=== PATIENT | female | born 1940 | race Caucasian/White ===

== ENCOUNTER 2018-07-02 02:25 | Day surgery (SDC) | payer MEDICARE ==
[2018-07-01 13:30] LABS: BASOPHILS ABSOLUTE AUTO 0.04 K/mm3 (0.00-0.23); BASOPHILS PERCENT AUTO 0 % (0-2); EOSINOPHILS ABSOLUTE AUTO 0.15 K/mm3 (0.00-0.68); EOSINOPHILS PERCENT AUTO 2 % (0-6); Hematocrit 36.2 % (33.0-51.0); Hemoglobin 11.5 g/dL (11.5-16.0); IMMATURE GRAN ABSOLUTE AUTO 0.08 K/mm3 (0.00-0.10); IMMATURE GRAN PERCENT AUTO 1 % (0-1); LYMPHOCYTES ABSOLUTE AUTO 1.45 K/mm3 (0.84-5.20); LYMPHOCYTES PERCENT AUTO 16 % (21-46); MONOCYTES ABSOLUTE AUTO 0.66 K/mm3 (0.16-1.47); MONOCYTES PERCENT AUTO 7 % (4-13); Mean Corpuscular HGB Conc 31.8 g/dL (31.5-36.5); Mean Corpuscular Volume 85 fL (80-100); NEUTROPHILS ABSOLUTE AUTO 6.72 K/mm3 (1.96-9.15); NEUTROPHILS PERCENT AUTO 74 % (41-73); Platelet Count 253 K/mm3 (150-400); RDW Coefficient Variation 14.3 % (11.7-14.2); RDW Standard Deviation 43.9 fL (35.1-46.3); Red Blood Cell Count 4.26 M/mm3 (3.80-5.20)
[2018-07-01 13:33] LABS: International Normalized Ratio 0.97
[2018-07-01 15:46] LABS: Bun/Creatinine Ratio 18.3 (12.0-20.0); Calcium, Blood 9.1 mg/dL (8.5-10.1); Creatinine, Blood 1.09 mg/dL (0.40-1.00); Potassium, Blood 4.6 mmol/L (3.5-5.5)
[~2018-07-02] VITALS: Ht 157.5 cm; Wt 83.0 kg
[~2018-07-02 02:25] MED LIST: BRAIN MIGHT-DH1 EACH; CALCIUM 1,0001 EACH; Glucophage1000 MG; HYDACE5 PO; NAPR500 PO; Omeprazole20 M1; SERT100
[2018-07-02] MEDS ORDERED: ZESTORETIC 20-121 EA PO (08:20)
== END 2018-07-02 12:16 | disposition home or self-care (01) ==
LOC: MHTC 02:25
PROVIDERS: Internal Medicine Cardiovascular Disease
PROC: B211YZZ Fluoroscopy of Multiple Coronary Arteries using Other Contrast (ICD-10-PCS; principal; 2018-07-02)
DX: I35.0 Nonrheumatic aortic (valve) stenosis (principal); E11.9 Type 2 diabetes mellitus without complications; J45.909 Unspecified asthma, uncomplicated; I10 Essential (primary) hypertension
CPT/HCPCS: 36415; 80048; 85025; 85610; 93454; 99152; 99153; C1769; C1894; J1644; J2250; J3010; J7030; Q9967

== ENCOUNTER → 2018-07-08 | Outpatient (CLI) | payer MEDICARE ==
[~2018-07-08] MED LIST changes: +ZESTORETIC 20-121 EA PO
== END | disposition home or self-care (01) ==
LOC: LAB SHORT 14:54 → PLD 14:54
DX: D11.0 Benign neoplasm of parotid gland (principal)
CPT/HCPCS: 88173

== ENCOUNTER 2019-01-01 08:16 | Day surgery (SDC) | payer MEDICARE ==
[~2019-01-01] VITALS: Ht 160 cm; Wt 79.3 kg
[~2019-01-01 08:16] MED LIST changes: +ALBU2.5V5; +ALBU90OI61 INH; +Aspirin EC81 MG PO; +CLOP75 PO; +Fruity C250 MG PO; +HYDHCL25 PO; +Hair, Skin & N1 EACH PO; +Metformin HCl1000 MG PO; +Mupirocin22 GM; +Omeprazole20 M1 PO; +SERT100 PO; +Super B-50 Com1 EACH PO; +VITAMIN D31000 UNIT PO
--- NOTE | 2019-01-01 11:16 | NUR ---
01/01/19 1116 Kimmy Sykes AWARE OF PATIENTS LOW BP. NO ORDERS RECEIVED. PATIENTS IV FLUIDS OPENED UP. WILL CONTINUE TO MONITOR. RN WILL NOTIFY DR. TILLEY IF PATIENTS BP DOES NOT BEGIN TO INCREASE.
== END 2019-01-01 12:00 | disposition home or self-care (01) ==
LOC: ORSCSDS 08:16
PROVIDERS: Student in an Organized Health Care Education/Training Program
PROC: 0DB68ZX Excision of Stomach, Via Natural or Artificial Opening Endoscopic, Diagnostic (ICD-10-PCS; principal; 2019-01-01 09:45)
PROC: 0DBH8ZX Excision of Cecum, Via Natural or Artificial Opening Endoscopic, Diagnostic (ICD-10-PCS; principal; 2019-01-01 09:45)
PROC: 0DBE8ZX Excision of Large Intestine, Via Natural or Artificial Opening Endoscopic, Diagnostic (ICD-10-PCS; 2019-01-01 09:45)
PROC: 0DB98ZX Excision of Duodenum, Via Natural or Artificial Opening Endoscopic, Diagnostic (ICD-10-PCS; 2019-01-01 09:45)
PROC: 0D758ZZ Dilation of Esophagus, Via Natural or Artificial Opening Endoscopic (ICD-10-PCS; 2019-01-01 09:45)
PROC: 0DB58ZX Excision of Esophagus, Via Natural or Artificial Opening Endoscopic, Diagnostic (ICD-10-PCS; 2019-01-01 09:45)
DX: K21.9 Gastro-esophageal reflux disease without esophagitis (principal); R13.14 Dysphagia, pharyngoesophageal phase; D64.9 Anemia, unspecified; R19.7 Diarrhea, unspecified; K44.9 Diaphragmatic hernia without obstruction or gangrene; K29.70 Gastritis, unspecified, without bleeding; K22.2 Esophageal obstruction; K31.7 Polyp of stomach and duodenum; K57.30 Diverticulosis of large intestine without perforation or abscess without bleeding; Z86.010 Personal history of colon polyps; K64.4 Residual hemorrhoidal skin tags; I10 Essential (primary) hypertension; E11.9 Type 2 diabetes mellitus without complications; F32.9 Major depressive disorder, single episode, unspecified; Z79.899 Other long term (current) drug therapy; Z79.82 Long term (current) use of aspirin
CPT/HCPCS: 82947; 88305; 88342; C1726; J7120

== ENCOUNTER 2019-01-10 08:36 | Observation (INO) | payer MEDICARE ==
[~2019-01-10] VITALS: Ht 160 cm; Wt 81.2 kg
[2019-01-10] MEDS ORDERED: PANT40 PO (09:08)
[2019-01-10 09:56] LABS: BASOPHILS PERCENT AUTO 1 % (0-2); EOSINOPHILS ABSOLUTE AUTO 0.25 K/mm3 (0.00-0.68); EOSINOPHILS PERCENT AUTO 2 % (0-6); Hematocrit 34.2 % (33.0-51.0); Hemoglobin 10.8 g/dL (11.5-16.0); IMMATURE GRAN PERCENT AUTO 1 % (0-1); LYMPHOCYTES ABSOLUTE AUTO 1.47 K/mm3 (0.84-5.20); LYMPHOCYTES PERCENT AUTO 13 % (21-46); MONOCYTES ABSOLUTE AUTO 0.93 K/mm3 (0.16-1.47); MONOCYTES PERCENT AUTO 9 % (4-13); Mean Corpuscular HGB 28.3 pg (26.0-34.0); Mean Corpuscular HGB Conc 31.6 g/dL (31.5-36.5); Mean Corpuscular Volume 90 fL (80-100); Mean Platelet Volume 9.6 fL (9.1-12.4); NEUTROPHILS ABSOLUTE AUTO 8.12 K/mm3 (1.96-9.15); NEUTROPHILS PERCENT AUTO 74 % (41-73); Platelet Count 265 K/mm3 (150-400); RDW Coefficient Variation 13.7 % (11.7-14.2); Red Blood Cell Count 3.81 M/mm3 (3.80-5.20); White Blood Cell Count 10.97 K/mm3 (4.00-11.30)
[2019-01-10 10:04] LABS: Albumin, Blood 3.7 g/dL (3.4-5.0); Albumin/Globulin Ratio 0.9 (0.8-1.8); Bilirubin, Total 0.2 mg/dL (0.1-1.0); Bun/Creatinine Ratio 30.6 (12.0-20.0); Calcium, Blood 9.2 mg/dL (8.5-10.1); Creatinine, Blood 1.11 mg/dL (0.40-1.00); Globulin, Blood 4.3 g/dL (2.2-4.0); Potassium, Blood 4.9 mmol/L (3.5-5.5)
[2019-01-10 16:17] LABS: Hematocrit 33.7 % (33.0-51.0); Hemoglobin 10.9 g/dL (11.5-16.0)
[2019-01-10 22:25] LABS: Hematocrit 30.5 % (33.0-51.0); Hemoglobin 9.6 g/dL (11.5-16.0)
[2019-01-11 04:57] LABS: Hematocrit 30.8 % (33.0-51.0); Hemoglobin 9.5 g/dL (11.5-16.0)
--- NOTE | 2019-01-11 05:46 | NUR ---
SHIFT SUMMARY NO ACUTE CHANGES. PT HAD UNEVENTFUL NIGHT. PT DID NOT HAVE ANY BOWEL MOVEMENTS THIS EVENING. NO SIGNS OF BLEEDING. DENIES ANY NAUSEA OR ABDOMINAL PAIN. SLEPT WELL THROUGHOUT THE NIGHT. VSS. WILL CONTINUE TO MONITOR AND REPORT TO DAY RN.
[2019-01-11 10:18] LABS: Hematocrit 30.7 % (33.0-51.0); Hemoglobin 9.5 g/dL (11.5-16.0)
[2019-01-11 15:25] LABS: Hematocrit 30.4 % (33.0-51.0); Hemoglobin 9.5 g/dL (11.5-16.0)
--- NOTE | 2019-01-11 16:50 | NUR ---
SUMMARY PT IS A/O X4, PLEASANT/COOPERATIVE AFFECT. IND IN ROOM & UP AMBULATING IN HALLS. SHE STATE DR SPAULDING IN THIS AM TO SEE HER, DIET TO CONTINUE CL UNTIL SHE HAS BM. APPROX 1200 TODAY CALLED TO ROOM TO VIEW STOOL OUTPUT, APPEARED LOOSE RED/BLOODY, MEDIUM SIZED. PT/DAUGHTER STATE MULT BLOODY STOOLS PRIOR TO ADMIT. DR CASTELLANOS NOTIFIED. ORDER DR SPAULDING NOTIFIED, MESSAGE TO PAGER X2 HOWEVER HAS NOT BEEN BACK TO ROOM SO FAR THIS AFTERNOON. DR CASTELLANOS ORDER CARDIOLOGY CONSULT WITH DR WONG, IN TO SEE PT, ORDER ECHO, WILL REVIEW RESULTS & MAKE RECOMMENDATIONS. @ THIS TIME NO ORDERS FOR D/C HOME, PT AWARE. LAST H&H 30.4/9.6, VSS.
[2019-01-12 04:57] LABS: Hematocrit 32.1 % (33.0-51.0); Hemoglobin 9.7 g/dL (11.5-16.0)
--- NOTE | 2019-01-12 06:26 | NUR ---
SHIFT SUMMARY NO ACUTE CHANGES. STILL NO BM. NO SYMPTOMS OF BLEEDING. PT REQUESTING TO ADVANCE DIET. REMAINS CLEAR LIQUID AT THIS TIME. NO COMPLAINTS. PT HOPING TO BE DISCHARGED HOME. VSS. H & H STABLE. WILL CONTINUE TO MONITOR.
--- NOTE | 2019-01-12 09:20 | NUR ---
PERMISSION FOR CARE Patient gave student permission to provide care on 01/13/19 from 0630 to 1200.
--- NOTE | 2019-01-12 11:49 | NUR ---
ASSUMED CARE OF PT- *LATE ENTRY* BEDSIDE REPORT COMPLETE WITH NIGHT RN PRESLEY. PER REPORT PT ALERT AND ORIENTED AND INDEPENDENT IN THE ROOM. NO STOOLS LAST NIGHT PER REPORT BLOOD IN STOOL YESTERDAY, H&H STABLE AT THIS TIME. PT REQUESTED INCREASE IN DIET FROM CLEAR LIQUID, WILL SPEAK TO DR CASTELLANOS ON MORNING ROUNDS.
--- NOTE | 2019-01-12 14:27 | NUR ---
DISCHARGE NOTE- PT GIVEN VERBAL AND WRITTEN DISCHARGE INSTRUCTIONS AND ACKNOWLEDGED UNDERSTANDING OF THEM. PT DAUGHTER ARRIVED LATER AND FOLLOW UP APPOINTMENTS DISCUSSED WITH HER. PT DECLINED ESCORT AND W/C AND WALKED OUT UNDER HER OWN POWER WITH HER DAUGHTER. CONTACT INFORMATION PROVIDED IN THE EVENT THAT QUESTIONS SHOULD ARRISE.
== END 2019-01-12 12:45 | disposition home or self-care (01) ==
LOC: ER 08:36 → MEDS 08:37 → ERHOLD 08:37 → MEDS 16:41 → ENPENDDIS 01-12 11:00 → MEDS 01-12 12:45
PROVIDERS: Emergency Medicine; Family Medicine; ADMIT Internal Medicine
DX: K62.5 Hemorrhage of anus and rectum (principal); D62 Acute posthemorrhagic anemia; K57.90 Diverticulosis of intestine, part unspecified, without perforation or abscess without bleeding; R01.1 Cardiac murmur, unspecified; I12.9 Hypertensive chronic kidney disease with stage 1 through stage 4 chronic kidney disease, or unspecified chronic kidney disease; E11.22 Type 2 diabetes mellitus with diabetic chronic kidney disease; N18.3 Chronic kidney disease, stage 3 (moderate); F32.9 Major depressive disorder, single episode, unspecified; J45.909 Unspecified asthma, uncomplicated; K21.9 Gastro-esophageal reflux disease without esophagitis; E66.9 Obesity, unspecified; Z91.018 Allergy to other foods; Z91.048 Other nonmedicinal substance allergy status; Z79.899 Other long term (current) drug therapy; Z79.82 Long term (current) use of aspirin; Z79.84 Long term (current) use of oral hypoglycemic drugs; Z79.02 Long term (current) use of antithrombotics/antiplatelets; Z86.010 Personal history of colon polyps; Z95.2 Presence of prosthetic heart valve; Z87.442 Personal history of urinary calculi; Z90.49 Acquired absence of other specified parts of digestive tract; Z90.710 Acquired absence of both cervix and uterus; Z98.890 Other specified postprocedural states; Z86.39 Personal history of other endocrine, nutritional and metabolic disease; Z68.31 Body mass index [BMI] 31.0-31.9, adult
CPT/HCPCS: 36415; 80053; 82947; 85014; 85018; 85025; 86850; 86900; 86901; 93308; 93321; 96361; 96374; 96376; 99285; C9113; G0378; J7030

== ENCOUNTER 2020-04-07 08:46 | Day surgery (SDC) | payer MEDICARE ==
[~2020-04-07] VITALS: Ht 157.5 cm; Wt 81.9 kg
[~2020-04-07 08:46] MED LIST changes: +ALBU2.5V5 INH; +ALBU90OI INH; +ATORVASTATIN CA40 M1 PO; +Aspir 8181 MG PO; +CALCIUM 600 +1 EA11 PO; +DOXEPIN HCL3 MG PO; +GABA100 PO; +METFORMIN HCL500 M1 PO; +MULTIVITAMIN W1 EAC1 PO; +NEPHPLEX RX TA1 EACH PO; +PANT40 PO; +Vitamin D2000 UNIT PO; +ZESTORETIC 20-1 EACH PO
--- NOTE | 2020-04-07 09:29 | NUR ---
04/07/20 0929 Rose Perez 2 IV ATTEMPTS BY RN 1 IN RH AND 1 IN RW VALVE Q SUCCESSFL IV IN RAC BY BEN GONZALEZ TOW
--- NOTE | 2020-04-07 10:30 | NUR ---
04/07/20 Felix Carbajal PT RESTING ON BED. PT DENIES ANY LIGHTHEADEDNESS. PT AWAKE, ALERT. PT DENIES ANY PAIN. PT BP LOW. DR. STEWART AWARE. DR. STEWART GAVE PT MEDICATION TO INCREASE BP. PT MONITORED CLOSELY. PT TOLERATING APPLE JUICE. PT SMILING AND LAUGHING IN THE ROOM. WILL CONTINUE TO MONITOR.
== END 2020-04-07 10:43 | disposition home or self-care (01) ==
LOC: ORSCSDS 08:46
PROVIDERS: Student in an Organized Health Care Education/Training Program
PROC: 0DB58ZX Excision of Esophagus, Via Natural or Artificial Opening Endoscopic, Diagnostic (ICD-10-PCS; principal; 2020-04-07 10:15)
PROC: 0DB98ZX Excision of Duodenum, Via Natural or Artificial Opening Endoscopic, Diagnostic (ICD-10-PCS; principal; 2020-04-07 10:15)
PROC: 0DB68ZX Excision of Stomach, Via Natural or Artificial Opening Endoscopic, Diagnostic (ICD-10-PCS; principal; 2020-04-07 10:15)
PROC: 0D758ZZ Dilation of Esophagus, Via Natural or Artificial Opening Endoscopic (ICD-10-PCS; principal; 2020-04-07 10:15)
DX: K90.0 Celiac disease (principal); R13.10 Dysphagia, unspecified; K21.9 Gastro-esophageal reflux disease without esophagitis; K29.70 Gastritis, unspecified, without bleeding; K31.7 Polyp of stomach and duodenum; K22.2 Esophageal obstruction; K44.9 Diaphragmatic hernia without obstruction or gangrene; I10 Essential (primary) hypertension; E11.9 Type 2 diabetes mellitus without complications; E03.9 Hypothyroidism, unspecified; J45.909 Unspecified asthma, uncomplicated; Z79.84 Long term (current) use of oral hypoglycemic drugs
CPT/HCPCS: 82947; 88305; 88342; C1726; J2370; J2405; J2704; J7120

== ENCOUNTER 2020-10-14 21:39 | Emergency (ER) | payer MEDICARE ==
[~2020-10-14] VITALS: Ht 160 cm; Wt 81.7 kg
== END 2020-10-14 23:15 | disposition home or self-care (01) ==
LOC: ER 21:39
DX: M25.512 Pain in left shoulder (principal); G89.29 Other chronic pain; E11.9 Type 2 diabetes mellitus without complications; I10 Essential (primary) hypertension; Z79.84 Long term (current) use of oral hypoglycemic drugs; Z91.09 Other allergy status, other than to drugs and biological substances; Z91.018 Allergy to other foods; Z79.899 Other long term (current) drug therapy; Z79.82 Long term (current) use of aspirin
CPT/HCPCS: 20610; 73030; 96372-59; 99283-25; A9270; J3301

== ENCOUNTER → 2021-12-12 | Outpatient (CLI) | payer MEDICARE ==
[2022-01-04 13:21] LABS: Stool Occult Bld Immuno 1 Negative (NEGATIVE)
== END | disposition home or self-care (01) ==
LOC: LAB SHORT 12:00
PROVIDERS: Nurse Practitioner Family
DX: D50.9 Iron deficiency anemia, unspecified (principal)
CPT/HCPCS: G0328

== ENCOUNTER 2022-03-21 06:10 | Day surgery (SDC) | payer MEDICARE ==
[~2022-03-21] VITALS: Ht 160 cm; Wt 84.6 kg
--- NOTE | 2022-03-21 09:11 | NUR ---
03/21/22 0911 Cameron Rick 0.25ML OF EPI 1MG/ML ADDED TO 50ML OF NACL TO CREATE A LOCAL SOLUTION OF NACL WITH EPI 1:200,000.
--- NOTE | 2022-03-21 11:54 | NUR ---
03/21/22 1154 Isabelle Walker PT AWAKE AND ALERT, NEEDING ENCOURAGEMENT TO TAKE DEEP BREATHS. NO COMPALINTS OF PAIN.
== END 2022-03-21 13:09 | disposition home or self-care (01) ==
LOC: ORSCSDS 06:10
PROVIDERS: Otolaryngology
PROC: 0CB80ZZ Excision of Right Parotid Gland, Open Approach (ICD-10-PCS; principal; 2022-03-21 08:00)
DX: D11.0 Benign neoplasm of parotid gland (principal); D36.0 Benign neoplasm of lymph nodes; J44.9 Chronic obstructive pulmonary disease, unspecified; I25.10 Atherosclerotic heart disease of native coronary artery without angina pectoris; E11.22 Type 2 diabetes mellitus with diabetic chronic kidney disease; I12.9 Hypertensive chronic kidney disease with stage 1 through stage 4 chronic kidney disease, or unspecified chronic kidney disease; N18.9 Chronic kidney disease, unspecified; Z79.84 Long term (current) use of oral hypoglycemic drugs; Z79.899 Other long term (current) drug therapy; K21.9 Gastro-esophageal reflux disease without esophagitis; E66.9 Obesity, unspecified; Z68.33 Body mass index [BMI] 33.0-33.9, adult
CPT/HCPCS: 82947; 88307; J0171; J1100; J1885; J2250; J2370; J2405; J2704; J2710; J3010; J7120

== ENCOUNTER 2022-04-20 09:25 | Day surgery (SDC) | payer MEDICARE ==
[~2022-04-20] VITALS: Ht 160 cm; Wt 185.6 kg
--- NOTE | 2022-04-20 12:14 | NUR ---
04/20/22 1214 Lea Washburn BUPIVACAINE 0.5% 30MLS MIXED WITH EPI 0.15 ML PER ORDER FOR INJECTION AT OPSITE BY DR ZARATE.
--- NOTE | 2022-04-20 12:51 | NUR ---
04/20/22 1251 Abbot,Lavonne FACE TENT ADDED FOR O2 SATS FALLING TO 89-90%. LEFT ON ABOUT 5 MINUTES AND REMOVED. O2 SATS STABILIZED AT 93-94%
== END 2022-04-20 13:45 | disposition home or self-care (01) ==
LOC: ORSCSDS 09:25
PROVIDERS: Orthopaedic Surgery
PROC: 0JBF0ZZ Excision of Left Upper Arm Subcutaneous Tissue and Fascia, Open Approach (ICD-10-PCS; principal; 2022-04-20 11:15)
DX: D17.22 Benign lipomatous neoplasm of skin and subcutaneous tissue of left arm (principal); E11.22 Type 2 diabetes mellitus with diabetic chronic kidney disease; I12.9 Hypertensive chronic kidney disease with stage 1 through stage 4 chronic kidney disease, or unspecified chronic kidney disease; N18.9 Chronic kidney disease, unspecified; Z79.84 Long term (current) use of oral hypoglycemic drugs; E78.5 Hyperlipidemia, unspecified; Z79.899 Other long term (current) drug therapy; E66.9 Obesity, unspecified; Z68.32 Body mass index [BMI] 32.0-32.9, adult
CPT/HCPCS: 82947; 88304; J0171; J0690; J2405; J2704; J2765; J3010

== ENCOUNTER → 2023-04-11 | Outpatient (CLI) | payer MEDICARE ==
[2023-04-13 12:41] LABS: Stool Occult Bld Immuno 1 Negative (NEGATIVE)
== END | disposition home or self-care (01) ==
LOC: LAB SHORT 16:40 → LAB 16:40
PROVIDERS: Nurse Practitioner Family
DX: Z12.11 Encounter for screening for malignant neoplasm of colon (principal)
CPT/HCPCS: G0328

== ENCOUNTER 2023-04-14 22:36 | Emergency (ER) | payer MEDICARE ==
[~2023-04-14] VITALS: Ht 160 cm; Wt 81.7 kg
[2023-04-14 22:43] VITALS: BP 132/118
== END 2023-04-14 23:45 | disposition home or self-care (01) ==
LOC: ER 22:36
DX: S61.412A Laceration without foreign body of left hand, initial encounter (principal); E11.22 Type 2 diabetes mellitus with diabetic chronic kidney disease; I12.9 Hypertensive chronic kidney disease with stage 1 through stage 4 chronic kidney disease, or unspecified chronic kidney disease; N18.30 Chronic kidney disease, stage 3 unspecified; W26.0XXA Contact with knife, initial encounter; Z91.018 Allergy to other foods; Z91.09 Other allergy status, other than to drugs and biological substances; Z79.84 Long term (current) use of oral hypoglycemic drugs; Z79.899 Other long term (current) drug therapy; Z79.82 Long term (current) use of aspirin; Z95.2 Presence of prosthetic heart valve
CPT/HCPCS: 12001; 99282-25

== ENCOUNTER → 2024-02-19 | Outpatient (CLI) | payer MEDICARE ==
[2024-02-19 14:09] LABS: BASOPHILS ABSOLUTE AUTO 0.03 K/mm3 (0.00-0.23); BASOPHILS PERCENT AUTO 0 % (0-2); EOSINOPHILS ABSOLUTE AUTO 0.14 K/mm3 (0.00-0.68); EOSINOPHILS PERCENT AUTO 1 % (0-6); Hematocrit 33.4 % (33.0-51.0); IMMATURE GRAN ABSOLUTE AUTO 0.05 K/mm3 (0.00-0.10); IMMATURE GRAN PERCENT AUTO 0 % (0-1); LYMPHOCYTES ABSOLUTE AUTO 1.47 K/mm3 (0.84-5.20); LYMPHOCYTES PERCENT AUTO 13 % (21-46); MONOCYTES ABSOLUTE AUTO 1.14 K/mm3 (0.16-1.47); MONOCYTES PERCENT AUTO 10 % (4-13); Mean Corpuscular HGB 30.3 pg (26.0-34.0); Mean Corpuscular HGB Conc 32.9 g/dL (31.5-36.5); Mean Corpuscular Volume 92 fL (80-100); Mean Platelet Volume 9.7 fL (9.1-12.4); NEUTROPHILS ABSOLUTE AUTO 8.83 K/mm3 (1.96-9.15); NEUTROPHILS PERCENT AUTO 76 % (41-73); Platelet Count 176 K/mm3 (150-400); RDW Coefficient Variation 12.6 % (11.7-14.2); RDW Standard Deviation 41.5 fL (35.1-46.3); Red Blood Cell Count 3.63 M/mm3 (3.80-5.20); White Blood Cell Count 11.66 K/mm3 (4.00-11.30)
[2024-02-19 14:14] LABS: Bun/Creatinine Ratio 17.9 (12.0-20.0); Calcium, Blood 9.8 mg/dL (8.5-10.1); Creatinine, Blood 1.79 mg/dL (0.40-1.00); Potassium, Blood 4.2 mmol/L (3.5-5.5)
== END | disposition home or self-care (01) ==
LOC: LAB SHORT 14:04
PROVIDERS: Chiropractor
DX: R07.81 Pleurodynia (principal)
CPT/HCPCS: 80048; 84484; 85025; 85379

== ENCOUNTER 2024-03-06 13:52 | Emergency (ER) | payer OTHER ==
[~2024-03-06] VITALS: Ht 160 cm; Wt 81.7 kg
[2024-03-06 14:09] VITALS: BP 136/90
[2024-03-06 14:41] LABS: BASOPHILS ABSOLUTE AUTO 0.06 K/mm3 (0.00-0.23); BASOPHILS PERCENT AUTO 1 % (0-2); EOSINOPHILS ABSOLUTE AUTO 0.11 K/mm3 (0.00-0.68); EOSINOPHILS PERCENT AUTO 1 % (0-6); Hematocrit 34.7 % (33.0-51.0); Hemoglobin 11.7 g/dL (11.5-16.0); IMMATURE GRAN ABSOLUTE AUTO 0.09 K/mm3 (0.00-0.10); IMMATURE GRAN PERCENT AUTO 1 % (0-1); LYMPHOCYTES ABSOLUTE AUTO 1.66 K/mm3 (0.84-5.20); LYMPHOCYTES PERCENT AUTO 18 % (21-46); MONOCYTES ABSOLUTE AUTO 0.72 K/mm3 (0.16-1.47); MONOCYTES PERCENT AUTO 8 % (4-13); Mean Corpuscular HGB 30.6 pg (26.0-34.0); Mean Corpuscular HGB Conc 33.7 g/dL (31.5-36.5); Mean Corpuscular Volume 91 fL (80-100); Mean Platelet Volume 9.7 fL (9.1-12.4); NEUTROPHILS ABSOLUTE AUTO 6.82 K/mm3 (1.96-9.15); NEUTROPHILS PERCENT AUTO 72 % (41-73); Platelet Count 232 K/mm3 (150-400); RDW Coefficient Variation 12.4 % (11.7-14.2); RDW Standard Deviation 40.7 fL (35.1-46.3); Red Blood Cell Count 3.82 M/mm3 (3.80-5.20); White Blood Cell Count 9.46 K/mm3 (4.00-11.30)
[2024-03-06 14:59] LABS: Albumin, Blood 3.6 g/dL (3.4-5.0); Albumin/Globulin Ratio 0.8 (0.8-1.8); Bilirubin, Total 0.4 mg/dL (0.1-1.0); Bun/Creatinine Ratio 25.2 (12.0-20.0); Calcium, Blood 9.9 mg/dL (8.5-10.1); Creatinine, Blood 1.31 mg/dL (0.40-1.00); Globulin, Blood 4.5 g/dL (2.2-4.0); Total Protein, Blood 8.1 g/dL (6.4-8.2)
[2024-03-06 15:27] LABS: Source, Urine Clean Catch
[2024-03-06 15:33] LABS: Appearance, Urine Clear (Clear); Bilirubin, Urine Neg (Neg); Blood, Urine Neg (Neg); Color, Urine Yellow (P-Yellow); Glucose Qualitative, Urine Neg (Neg); Ketones, Urine Neg (Neg); Leukocyte Esterase, Urine Neg (Neg); Nitrite, Urine Neg (Neg); Protein, Urine Neg (Neg); Specific Gravity, Urine 1.015 (1.003-1.022); Urobilinogen, Urine NORM (Normal)
== END 2024-03-06 17:52 | disposition left against medical advice (07) ==
LOC: ER 13:52
PROVIDERS: Student in an Organized Health Care Education/Training Program
DX: R10.11 Right upper quadrant pain (principal); Z91.048 Other nonmedicinal substance allergy status; Z91.018 Allergy to other foods; Z79.899 Other long term (current) drug therapy; Z79.82 Long term (current) use of aspirin; Z79.84 Long term (current) use of oral hypoglycemic drugs; E11.22 Type 2 diabetes mellitus with diabetic chronic kidney disease; I12.9 Hypertensive chronic kidney disease with stage 1 through stage 4 chronic kidney disease, or unspecified chronic kidney disease; N18.30 Chronic kidney disease, stage 3 unspecified; K21.9 Gastro-esophageal reflux disease without esophagitis
CPT/HCPCS: 74177; 80053; 81003; 83690; 85025; 93005; 93010; 99284-25; Q9967

== ENCOUNTER 2025-08-21 07:20 | Inpatient (IN) | payer OTHER ==
[~2025-08-21] VITALS: Ht 160 cm; Wt 82.6 kg
[~2025-08-21 07:20] MED LIST changes: +VITAMIN C125 MG PO
[2025-08-21] MEDS ORDERED: Ondansetron HCl 2 MG / ML 2ML Vial IV ONE (07:50)
[2025-08-21 07:52] LABS: BASOPHILS ABSOLUTE AUTO 0.08 K/mm3 (0.00-0.23); BASOPHILS PERCENT AUTO 1 % (0-2); EOSINOPHILS ABSOLUTE AUTO 0.16 K/mm3 (0.00-0.68); EOSINOPHILS PERCENT AUTO 1 % (0-6); Hematocrit 32.3 % (33.0-51.0); Hemoglobin 10.6 g/dL (11.5-16.0); IMMATURE GRAN ABSOLUTE AUTO 0.13 K/mm3 (0.00-0.10); IMMATURE GRAN PERCENT AUTO 1 % (0-1); LYMPHOCYTES ABSOLUTE AUTO 2.60 K/mm3 (0.84-5.20); LYMPHOCYTES PERCENT AUTO 15 % (21-46); MONOCYTES ABSOLUTE AUTO 1.24 K/mm3 (0.16-1.47); MONOCYTES PERCENT AUTO 7 % (4-13); Mean Corpuscular HGB Conc 32.8 g/dL (31.5-36.5); Mean Corpuscular Volume 92 fL (80-100); NEUTROPHILS ABSOLUTE AUTO 13.09 K/mm3 (1.96-9.15); NEUTROPHILS PERCENT AUTO 76 % (41-73); NRBC ABSOLUTE 0.00 K/mm3 (0.00-0.02); NRBC Auto 0.0 /100 WBC (0.0-0.2); Platelet Count 215 K/mm3 (150-400); RDW Coefficient Variation 12.4 % (11.7-14.2); RDW Standard Deviation 41.3 fL (35.1-46.3)
[2025-08-21 08:03] LABS: Alanine Aminotransfer (ALT/SGP 20.0 U/L (12-78); Albumin, Blood 3.4 g/dL (3.4-5.0); Albumin/Globulin Ratio 0.9 (0.8-1.8); Anion Gap 11.0 mmol/L (3-11); Aspartate Aminotrans (AST/SGOT 17.0 U/L (12-37); Bilirubin, Total 0.4 mg/dL (0.1-1.0); Blood Urea Nitrogen 26.0 mg/dL (8-24); CO2, Blood 23.0 mmol/L (21-32); Calcium, Blood 9.1 mg/dL (8.5-10.1); Chloride, Blood 108.0 mmol/L (98-108); Creatinine, Blood 1.25 mg/dL (0.40-1.00); Globulin, Blood 3.6 g/dL (2.2-4.0); Glucose, Blood 197.0 mg/dL (70-99); Potassium, Blood 4.0 mmol/L (3.5-5.5); Sodium, Blood 138.0 mmol/L (136-145); Total Protein, Blood 7.0 g/dL (6.4-8.2)
[2025-08-21] MEDS ORDERED: HYDHCL25 PO ×2 (08:11)
[2025-08-21] MEDS ORDERED: TRAM50 PO (08:11)
[2025-08-21] MEDS ORDERED: Morphine Sulfate 4 MG/1 ML Injection IV ONE (09:05)
[2025-08-21 09:11] LABS: Influenza A, PCR NEGATIVE (NEGATIVE); Influenza B, PCR NEGATIVE (NEGATIVE); Resp Syncytial Virus, PCR NEGATIVE (NEGATIVE); SARS-Cov-2 (COVID-19) PCR, MMC NEGATIVE (NEGATIVE)
[2025-08-21] MEDS ORDERED: FLU VACC TS2025(65UP)/MF59C/PF 45 MCG/0.5 ML SYRINGE IM SCH (10:45)
[2025-08-21] MEDS ORDERED: Polyethylene Glycol 3350 17 gm PO PRN (10:50)
[2025-08-21 12:34] VITALS: BP 145/64
[2025-08-21] MEDS ORDERED: Albuterol 2.5 MG/3 ML VIAL INH PRN (13:45)
[2025-08-21] MEDS ORDERED: Ipratropium/Albuterol SulF 2.5-0.5MG/3 ML Amp INH SCH (13:45)
[2025-08-21] MEDS ORDERED: Morphine Sulfate 4 MG/1 ML Injection IV PRN (13:45)
[2025-08-21 14:20] LABS: C-REACTIVE PROTEIN, EXT RANGE 1.96 mg/dL (0.000-0.300)
[2025-08-21 15:48] VITALS: BP 124/57
[2025-08-21] MEDS ORDERED: Naproxen 250 MG TAB PO PRN (16:45)
--- NOTE | 2025-08-21 17:15 | NUR ---
ALERT AND OREINTED X4, CLEARLY MAKES NEEDS KNOWN, MEDICATED FOR PAIN, RESTNG, CALL LIGHT WITH IN REACH, PLEASANT TO CARE, DR CINTRON ROUNDED ON PAITENT, WILL RELAY TO PM RN
[2025-08-21 19:39] VITALS: BP 121/60
[2025-08-22 00:30] VITALS: BP 134/65
[2025-08-22 04:26] VITALS: BP 150/82
[2025-08-22 04:29] LABS: BASOPHILS ABSOLUTE AUTO 0.05 K/mm3 (0.00-0.23); BASOPHILS PERCENT AUTO 0 % (0-2); EOSINOPHILS ABSOLUTE AUTO 0.06 K/mm3 (0.00-0.68); EOSINOPHILS PERCENT AUTO 1 % (0-6); Hematocrit 32.3 % (33.0-51.0); Hemoglobin 10.4 g/dL (11.5-16.0); IMMATURE GRAN ABSOLUTE AUTO 0.06 K/mm3 (0.00-0.10); IMMATURE GRAN PERCENT AUTO 1 % (0-1); LYMPHOCYTES ABSOLUTE AUTO 1.18 K/mm3 (0.84-5.20); LYMPHOCYTES PERCENT AUTO 10 % (21-46); MONOCYTES ABSOLUTE AUTO 0.97 K/mm3 (0.16-1.47); MONOCYTES PERCENT AUTO 8 % (4-13); Mean Corpuscular HGB Conc 32.2 g/dL (31.5-36.5); Mean Corpuscular Volume 94 fL (80-100); NEUTROPHILS ABSOLUTE AUTO 9.72 K/mm3 (1.96-9.15); NEUTROPHILS PERCENT AUTO 81 % (41-73); NRBC ABSOLUTE 0.00 K/mm3 (0.00-0.02); NRBC Auto 0.0 /100 WBC (0.0-0.2); Platelet Count 156 K/mm3 (150-400); RDW Coefficient Variation 12.9 % (11.7-14.2); RDW Standard Deviation 44.3 fL (35.1-46.3)
[2025-08-22 04:49] LABS: Anion Gap 9.0 mmol/L (3-11); Blood Urea Nitrogen 26.0 mg/dL (8-24); CO2, Blood 29.0 mmol/L (21-32); Calcium, Blood 9.3 mg/dL (8.5-10.1); Chloride, Blood 103.0 mmol/L (98-108); Creatinine, Blood 1.37 mg/dL (0.40-1.00); Glucose, Blood 137.0 mg/dL (70-99); Potassium, Blood 4.8 mmol/L (3.5-5.5); Sodium, Blood 136.0 mmol/L (136-145)
[2025-08-22 07:25] VITALS: BP 130/65
[2025-08-22] MEDS ORDERED: Enoxaparin 40 MG/0.4 ML SYR SC SCH (09:00)
[2025-08-22] MEDS ORDERED: MetFORMIN HCl 500 mg PO SCH (09:00)
[2025-08-22 11:49] VITALS: BP 121/72
[2025-08-22] MEDS ORDERED: Isosorbide Mononitrate 30 MG TABCR PO SCH (14:00)
[2025-08-22 15:39] VITALS: BP 129/67
[2025-08-22] MEDS ORDERED: Lidocaine 4% 1 Patch TOP PRN (15:45)
--- NOTE | 2025-08-22 17:11 | NUR ---
NO ACUTE CHANGES, PATIENTS PAIN SHE REPORTS IS IMPROVED FROM YESTERDAY NUT FAR FROM [facility]ADE, ECHO, DONE TODAY, OOB TO CHAIR, CLEARLY MAKES NEEDS KNOWN, CALL LIGT WITH IN REACH
[2025-08-22 20:37] VITALS: BP 127/62
[2025-08-22 20:46] LABS: Influenza A/2009-H1 Not Detected (NOT DETECT); SARS-Cov-2 (COVID-19), BioFire Not Detected (NOT DETECT)
[2025-08-23 00:32] VITALS: BP 100/60
[2025-08-23 04:11] VITALS: BP 112/63
[2025-08-23 07:04] LABS: BASOPHILS ABSOLUTE AUTO 0.03 K/mm3 (0.00-0.23); BASOPHILS PERCENT AUTO 0 % (0-2); EOSINOPHILS ABSOLUTE AUTO 0.14 K/mm3 (0.00-0.68); EOSINOPHILS PERCENT AUTO 2 % (0-6); Hematocrit 32.4 % (33.0-51.0); Hemoglobin 10.4 g/dL (11.5-16.0); IMMATURE GRAN ABSOLUTE AUTO 0.04 K/mm3 (0.00-0.10); IMMATURE GRAN PERCENT AUTO 1 % (0-1); LYMPHOCYTES ABSOLUTE AUTO 1.29 K/mm3 (0.84-5.20); LYMPHOCYTES PERCENT AUTO 17 % (21-46); MONOCYTES ABSOLUTE AUTO 0.79 K/mm3 (0.16-1.47); MONOCYTES PERCENT AUTO 10 % (4-13); Mean Corpuscular HGB Conc 32.1 g/dL (31.5-36.5); Mean Corpuscular Volume 94 fL (80-100); NEUTROPHILS ABSOLUTE AUTO 5.53 K/mm3 (1.96-9.15); NEUTROPHILS PERCENT AUTO 71 % (41-73); NRBC ABSOLUTE 0.00 K/mm3 (0.00-0.02); NRBC Auto 0.0 /100 WBC (0.0-0.2); Platelet Count 163 K/mm3 (150-400); RDW Coefficient Variation 12.6 % (11.7-14.2); RDW Standard Deviation 43.2 fL (35.1-46.3)
[2025-08-23 07:19] LABS: Anion Gap 9.0 mmol/L (3-11); Blood Urea Nitrogen 38.0 mg/dL (8-24); CO2, Blood 26.0 mmol/L (21-32); Calcium, Blood 9.2 mg/dL (8.5-10.1); Chloride, Blood 104.0 mmol/L (98-108); Creatinine, Blood 1.51 mg/dL (0.40-1.00); Glucose, Blood 136.0 mg/dL (70-99); Potassium, Blood 4.4 mmol/L (3.5-5.5); Sodium, Blood 135.0 mmol/L (136-145)
[2025-08-23 07:52] VITALS: BP 110/65
[2025-08-23 11:15] VITALS: BP 118/66
[2025-08-23 16:13] VITALS: BP 129/75
--- NOTE | 2025-08-23 17:36 | NUR ---
SHIFT SUMMARY PT AOX4, 1 ASSIST WITH THE FWW. UP AND WALKING AROUND THE ROOM TODAY, TOLERATING FAIR. SHE DOES BECOME SOB WITH EXERTION. STRESS TEST DONE TODAY, POSSIBLE DC TOMORROW. SHE WILL NEED A HOME O2 EVAL PRIOR TO DC. REPOSITIONS SELF IN BED, UP TO THE CHAIR FOR MEALS. BOWEL CARE MEDS GIVEN PER THE EMAR ALONG WITH PRUNE JUICE. CALL LIGHT WITHIN REACH, BEDL OCKED AND IN THE LOWEST POSITION. WILL REPORT TO ONCOMING NURSE.
[2025-08-23] MEDS ORDERED: Isosorbide Mononitrate 30 MG TABCR PO SCH (18:00)
[2025-08-23 20:10] VITALS: BP 124/58
[2025-08-24 01:03] VITALS: BP 102/58
[2025-08-24 04:52] VITALS: BP 108/55
[2025-08-24 05:14] LABS: BASOPHILS ABSOLUTE AUTO 0.05 K/mm3 (0.00-0.23); BASOPHILS PERCENT AUTO 1 % (0-2); EOSINOPHILS ABSOLUTE AUTO 0.15 K/mm3 (0.00-0.68); EOSINOPHILS PERCENT AUTO 2 % (0-6); Hematocrit 29.7 % (33.0-51.0); Hemoglobin 9.6 g/dL (11.5-16.0); IMMATURE GRAN ABSOLUTE AUTO 0.05 K/mm3 (0.00-0.10); IMMATURE GRAN PERCENT AUTO 1 % (0-1); LYMPHOCYTES ABSOLUTE AUTO 1.73 K/mm3 (0.84-5.20); LYMPHOCYTES PERCENT AUTO 20 % (21-46); MONOCYTES ABSOLUTE AUTO 0.61 K/mm3 (0.16-1.47); MONOCYTES PERCENT AUTO 7 % (4-13); Mean Corpuscular HGB Conc 32.3 g/dL (31.5-36.5); Mean Corpuscular Volume 91 fL (80-100); NEUTROPHILS ABSOLUTE AUTO 6.02 K/mm3 (1.96-9.15); NEUTROPHILS PERCENT AUTO 70 % (41-73); NRBC ABSOLUTE 0.00 K/mm3 (0.00-0.02); NRBC Auto 0.0 /100 WBC (0.0-0.2); Platelet Count 194 K/mm3 (150-400); RDW Coefficient Variation 12.6 % (11.7-14.2); RDW Standard Deviation 42.0 fL (35.1-46.3)
[2025-08-24 05:40] LABS: Alanine Aminotransfer (ALT/SGP 17.0 U/L (12-78); Albumin, Blood 3.1 g/dL (3.4-5.0); Albumin/Globulin Ratio 0.8 (0.8-1.8); Anion Gap 11.0 mmol/L (3-11); Aspartate Aminotrans (AST/SGOT 11.0 U/L (12-37); Bilirubin, Total 0.6 mg/dL (0.1-1.0); Blood Urea Nitrogen 45.0 mg/dL (8-24); CO2, Blood 25.0 mmol/L (21-32); Calcium, Blood 9.2 mg/dL (8.5-10.1); Chloride, Blood 102.0 mmol/L (98-108); Creatinine, Blood 1.68 mg/dL (0.40-1.00); Globulin, Blood 4.1 g/dL (2.2-4.0); Glucose, Blood 131.0 mg/dL (70-99); Potassium, Blood 4.6 mmol/L (3.5-5.5); Sodium, Blood 133.0 mmol/L (136-145); Total Protein, Blood 7.2 g/dL (6.4-8.2)
--- NOTE | 2025-08-24 06:38 | NUR ---
SHIFT SUMMARY; PATIENT SLEPT IN LONG INTERVALS AFTER PAIN MEDS AT HS. MIRALAX ALSO GIVEN, NO BM, GIVEN DOUBLE BUTTERED HOT PRUNE JUICE THIS MORNING. TELE SR 76.
[2025-08-24 07:51] VITALS: BP 142/73
[2025-08-24] MEDS ORDERED: NS 500 ML IV ONE (08:00)
[2025-08-24 11:27] VITALS: BP 119/80
[2025-08-24 15:40] LABS: Anion Gap 10.0 mmol/L (3-11); Blood Urea Nitrogen 44.0 mg/dL (8-24); CO2, Blood 25.0 mmol/L (21-32); Calcium, Blood 9.6 mg/dL (8.5-10.1); Chloride, Blood 102.0 mmol/L (98-108); Creatinine, Blood 1.48 mg/dL (0.40-1.00); Glucose, Blood 115.0 mg/dL (70-99); Potassium, Blood 4.9 mmol/L (3.5-5.5); Sodium, Blood 132.0 mmol/L (136-145)
[2025-08-24] MEDS ORDERED: SERT100 PO (16:54)
[2025-08-24] MEDS ORDERED: NAPR500ERA PO (16:55)
[2025-08-24] MEDS ORDERED: Isosorbide Dinit5 MG PO (16:56)
--- NOTE | 2025-08-24 17:41 | NUR ---
DISCHARGE NOTE PT DISCHARGED TO HOME, PICKED UP BY HER GRANDDAUGHTER. IV REMOVED. TELE RETURNED. MEDICATIONS FAXED TO THE PHARMACY OF HER CHOICE. NO NEED FOR OXYGEN PER RT. PERSONAL BELONGINGS RETURNED. DISCHARGE INFORMATION AND EDUCATION REVIEWED WITH THE PT.
== END 2025-08-24 17:18 | disposition home or self-care (01) | DRG 189 ==
LOC: ER 07:20 → MEDS 07:21
PROVIDERS: Student in an Organized Health Care Education/Training Program; ADMIT Internal Medicine
DX: J96.01 Acute respiratory failure with hypoxia (principal); I12.9 Hypertensive chronic kidney disease with stage 1 through stage 4 chronic kidney disease, or unspecified chronic kidney disease; E11.22 Type 2 diabetes mellitus with diabetic chronic kidney disease; N18.31 Chronic kidney disease, stage 3a; G47.33 Obstructive sleep apnea (adult) (pediatric); K21.9 Gastro-esophageal reflux disease without esophagitis; J44.89 Other specified chronic obstructive pulmonary disease; D63.1 Anemia in chronic kidney disease; Z66 Do not resuscitate; F41.1 Generalized anxiety disorder; E78.5 Hyperlipidemia, unspecified; M54.50 Low back pain, unspecified; G89.29 Other chronic pain; Z95.4 Presence of other heart-valve replacement; Z90.49 Acquired absence of other specified parts of digestive tract; Z90.710 Acquired absence of both cervix and uterus; Z98.890 Other specified postprocedural states; Z79.82 Long term (current) use of aspirin; Z79.84 Long term (current) use of oral hypoglycemic drugs; Z79.899 Other long term (current) drug therapy; Z91.0120 Allergy to eggs, unspecified; Z91.018 Allergy to other foods; Z91.048 Other nonmedicinal substance allergy status
CPT/HCPCS: 0202U; 36415; 71260; 78452; 80048; 80053; 83690; 83880; 84484; 85025; 85651; 86140; 87637; 93005; 93010; 93017; 93306; 94640; 94664; 94760; 96372; 96374-59; 96375-59; 96376; 99285-25; A9270; A9500; G0378; J1650; J2270; J2405; J2785; J7040; Q9967